=== PATIENT | male | born 1955 | race Caucasian/White ===

== ENCOUNTER 2019-07-07 12:03 | Day surgery (SDC) | payer MEDICARE, BC ==
[~2019-07-07] VITALS: Ht 177.8 cm; Wt 88.2 kg
[~2019-07-07 12:03] MED LIST: ALLO300 PO; ASCO250CH PO; ATACAND; ATOR10 PO; CYAN100 PO; GARLIC; Jantoven10 MG PO; KLOR-CON; LOSA50 PO; LYSINE; METO50ER PO; MULVITMINF PO; OMEGA; OXYACE5T PO; PYRI100 PO; SALS500 PO; WARF10 PO; WARF2.5 PO; ZOLP10 PO
--- NOTE | 2019-07-07 12:30 | NUR ---
History, Chart, Medications and Allergies reviewed before start of procedure. Patient confirms NPO status and agrees with scheduled surgery. Lungs clear T/O to Auscultation. Patient States Post-Procedure ride home has been arranged. Patient states colon prep results clear. Pre-Op teaching done. Pt verbalizes understanding.
[2019-07-07] MEDS ORDERED: LANS30EC PO (12:55)
[2019-07-07] MEDS ORDERED: NATURAL LUTEIN20 MG PO (12:56)
[2019-07-07] MEDS ORDERED: Percocet 5-3251 EACH PO (12:57)
--- NOTE | 2019-07-07 14:30 | NUR ---
07/07/19 1430 Pa Henry History, Chart, Medications and Allergies reviewed before start of procedure.MONITOR INTACT WITH CONTINUOUS PULSE OXIMETRY AND INTERMITTENT BP.3-LEAD EKG REVIEWED WITH PHYSICIAN PRIOR TO START OF PROCEDURE.O2 VIA N/C INTACT THROUGHOUT SEDATION/PROCEDURE. Patient confirms NPO status and agrees with scheduled surgery.See Anesthesia record.
--- NOTE | 2019-07-07 15:17 | NUR ---
PER DR FERREIRA, ANESTHESIOLOGIST, OK TO DO NURSE SEDATION FOR ANY FURTHER ENDOSCOPIES.
== END 2019-07-07 16:13 | disposition home or self-care (01) ==
LOC: ORSCMMR 12:03 → ORD 13:30 → ORSCMMR 13:30
DX: R19.4 Change in bowel habit (principal); D12.0 Benign neoplasm of cecum; K63.5 Polyp of colon; K57.30 Diverticulosis of large intestine without perforation or abscess without bleeding; K31.7 Polyp of stomach and duodenum; K21.9 Gastro-esophageal reflux disease without esophagitis; K29.40 Chronic atrophic gastritis without bleeding; R10.9 Unspecified abdominal pain; Z86.010 Personal history of colon polyps; R12 Heartburn; I10 Essential (primary) hypertension; Z79.01 Long term (current) use of anticoagulants; Z79.899 Other long term (current) drug therapy; F17.220 Nicotine dependence, chewing tobacco, uncomplicated
CPT/HCPCS: 88305; 88342; J2704; J7120

== ENCOUNTER → 2024-10-01 | Outpatient (CLI) | payer OTHER ==
[~2024-10-01] MED LIST changes: +LANS30EC PO; +NATURAL LUTEIN20 MG PO; +Percocet 5-3251 EACH PO
[2024-10-02 12:35] LABS: Stool Occult Bld Immuno 1 Negative (NEGATIVE)
== END ==
LOC: LAB 14:15 → LAB SHORT 14:15
PROVIDERS: Family Medicine
DX: D64.9 Anemia, unspecified (principal)
CPT/HCPCS: G0328

== ENCOUNTER 2025-04-19 09:16 | Day surgery (SDC) | payer OTHER ==
[2025-04-19] VITALS (13 sets, daily range): BP systolic 111–149; BP diastolic 49–96
[~2025-04-19] VITALS: Ht 180.3 cm; Wt 90.3 kg
[~2025-04-19 09:16] MED LIST changes: +AMLO5 PO; +GABA300 PO; +METO50 PO; +Norco 5-325 Ta1 EACH PO; +TAMS.4ER PO; +ZYRTEC10 M2 PO; +Zanaflex2 M1 PO
[2025-04-19] MEDS ORDERED: Nitroglycerin 2 MG/20 ML BTL ONE (10:12)
[2025-04-19] MEDS ORDERED: NS 250 ML IV ONE (10:12)
[2025-04-19] MEDS ORDERED: NS 1,000 ML IV ONE ×2 (10:12→10:25)
[2025-04-19] MEDS ORDERED: Verapamil HCL 2.5 MG/ML 2ML Injection ONE (10:12)
[2025-04-19] MEDS ORDERED: Heparin Sodium 1000 Units/ML 10ML MDV ONE (10:12)
[2025-04-19] MEDS ORDERED: FentaNYL Citrate 50 MCG/ML 2 ML Injection ONE (10:24)
[2025-04-19] MEDS ORDERED: Midazolam HCl 1MG / ML 2ML Vial ONE (10:25)
--- NOTE | 2025-04-19 11:55 | NUR ---
PATIENT ARRIVED TO RECOVERY ROOM SITTING UPRIGHT IN RECLINER. RIGHT RADIAL TR BAND FULLY INFLATED. SITE C.D.I SOFT/NONTENDER, SERGIO VIDENCE OF BLEEDING. GOOD PLEUTH WAVE. PATIENT DENYING ANY PAIN. SPOUSE PRESENT AT BEDSIDE. VSS ON RA
--- NOTE | 2025-04-19 11:57 | NUR ---
PATIENT TOLERATING PO INTAKE WELL. RIGHT RADIAL SITE C.D.D. SOFT/NONTENDER, NO EVIDENCE OF BLEEDING. VSS ON RA.
--- NOTE | 2025-04-19 13:00 | NUR ---
INITAL 2 CC OF AIR REMVOED FROM RIGHT RADIAL TR BAND. SITE C/D/I SOFT/NONTENDER, NO EVIDENCE OF BLEEDING. VSS ON RA. WILL CONTINUE TO MONITOR. PATIENT TOLERATING PO INTAKE WELL. PRESENT AT BEDSIDE.
--- NOTE | 2025-04-19 13:16 | NUR ---
Pt up to bathroom, r radial site stable.
--- NOTE | 2025-04-19 13:19 | NUR ---
2 cc air released from tr band, no swelling or bleeding noted.
--- NOTE | 2025-04-19 13:44 | NUR ---
ALL AIR REMOVED FROM RIGHT RADIAL TR BAND. SITE C.D.I SOFT/NONTENDER, NO EVIDENCE OF BLEEDING. VSS ON RA. WILL CONTINUE TO MONITOR
--- NOTE | 2025-04-19 14:00 | NUR ---
PATIENT AMBULATING TO RESTROOM WITHOUT DIFFICULTY. RIGHT RADIAL SITE C/D/I SOFT/NONTENDER, NO EVIDENCE OF BLEEDING. VSS ON RA. PIV REMOVED WITHOUT DIFFICULTY, CATHETER INTACT. TR BAND REMOVED, SITE C/D/I SOFT/NONTENDER, NO EVIDENCE OF BLEEDING. CLOTH DOT AND ARM BOARD IN PLACE. RADIAL SITE CARE INSTRUCTION GIVEN. VSS ON RA.
--- NOTE | 2025-04-19 14:35 | NUR ---
PATIENT DISCHARGED HOME AT THIS TIME. DISCHARGE INSTRUCTIONS REVIEWED WITH PATIENT AND SPOUSE, ALL QUESTIONS WERE ANSWSERED. PATIENT WHEELED TO HOSPITAL ENTRANCE AND SPOUSE ABLE TO PROVIDE TRANSPORTATION HOME.
== END 2025-04-19 14:35 | disposition home or self-care (01) ==
LOC: MHTC 09:16
DX: I71.20 Thoracic aortic aneurysm, without rupture, unspecified (principal); I10 Essential (primary) hypertension; E78.5 Hyperlipidemia, unspecified; Z79.899 Other long term (current) drug therapy
CPT/HCPCS: 76937; 93456; 99152; C1769; C1894; J1644; J2250; J3010; J7030; J7050; Q9967